=== PATIENT | male | born 1955 | race Caucasian/White ===

== ENCOUNTER → 2024-04-24 11:55 | Outpatient (CLI) | payer MEDICARE, OTHER, SELFPAY ==
--- NOTE | 2024-04-24 | DI.MRI.S_ITS ---
PROCEDURE: MR PELIS WO/W CON INDICATIONS: PSA RECURRENCE S/P PROSTATECTOMY TECHNIQUE: Coronal HASTE, sagittal T2 FSE, axial T1 FSE, axial and coronal nonbreath-hold T2 FSE. Axial dynamic VIBE during administration of contrast. Post-contrast axial and coronal VIBE/2-D FLASH with fat saturation from the iliac crests to the symphysis. Optional diffusion weighted imaging and ADC may be performed. COMPARISON: Outside Facility, [place], [place] PET CT FUSION SKULL 2 THIGH, 01/16/2024, 14:43. FINDINGS: Image quality: Excellent. Bowel and peritoneum: No pathologic free pelvic fluid. Inferior colon and small bowel loops are normal in caliber. Genitourinary system: Prostate is absent. Nodes and vessels: No pathologic pelvic or inguinal adenopathy by size criteria. Iliac vessels are normal in caliber. Soft tissues: No inguinal hernias. Bones: Enhancing left iliac bone lesion measuring 1.7 cm. IMPRESSION: Prostatectomy without evidence of local recurrence in the surgical bed. Enhancing left iliac bone lesion measuring 1.7 cm, concerning for osseous metastatic disease. This could be confirmed with PMSA PET. Dictated by: Sameer Hernandez M.D. on 04/24/2024 at 18:09 Approved by: Sameer Hernandez M.D. on 04/24/2024 at 18:20
== END ==
PROVIDERS: Referring Provider Radiology Radiation Oncology; Visit Provider Radiology Radiation Oncology
DX: C61 Malignant neoplasm of prostate (principal); M89.9 Disorder of bone, unspecified
CPT/HCPCS: 72197; A9579